=== PATIENT | male | born 1995 | race Caucasian/White ===

== ENCOUNTER 2018-02-25 11:03 | Emergency (ER) | payer SELFPAY ==
[~2018-02-25] VITALS: Ht 177.8 cm; Wt 84.1 kg
[2018-02-25 11:17] VITALS: BP 141/89
== END 2018-02-25 11:34 | disposition short-term general hospital (02) ==
LOC: EMS 11:04 → EDBD 11:04 → EMS 11:34
DX: S11.91XA Laceration without foreign body of unspecified part of neck, initial encounter (principal); W45.8XXA Other foreign body or object entering through skin, initial encounter; Y93.89 Activity, other specified; Y92.89 Other specified places as the place of occurrence of the external cause; Y99.8 Other external cause status
CPT/HCPCS: 99285

== ENCOUNTER 2021-03-10 16:54 | Inpatient (IN) | payer OTHER ==
[~2021-03-10] VITALS: Ht 177.8 cm; Wt 81.2 kg
[2021-03-10 19:37] LABS: BASOPHILS % (AUTO) 0.8 % (0.0-2.0); EOSINOPHILS % (AUTO) 0.9 % (1.0-6.0); HEMATOCRIT 42.8 % (41-53); HEMOGLOBIN 14.5 g/dL (13.5-17.5); LYMPHOCYTES # (AUTO) 2.7 K/uL (1.0-4.8); LYMPHOCYTES % (AUTO) 26.9 % (22.0-44.0); MEAN CORPUSCULAR HEMOGLOBIN 31.7 pg (26.0-34.0); MEAN CORPUSCULAR HGB CONC 33.8 G/dL (31.0-37.0); MEAN CORPUSCULAR VOLUME 94 fL (80-100); MONOCYTES # (AUTO) 0.5 K/uL (0.1-1.0); MONOCYTES % (AUTO) 5.1 % (2.0-9.0); NEUTROPHILS # (AUTO) 6.8 K/uL (1.8-7.7); NEUTROPHILS % (AUTO) 66.3 % (40.0-70.0); PLATELET COUNT (AUTO) 332 K/uL (150-450); RED BLOOD CELL COUNT(AUTO) 4.56 MIL/uL (4.50-5.90); RED CELL DISTRIBUTION WIDTH 13.4 % (11.5-14.5)
[2021-03-10 19:49] LABS: ANION GAP 12 mmol/L (8-16); CALCIUM, TOTAL 9.3 mg/dL (8.8-10.5); CARBON DIOXIDE 26 mmol/L (22-29); CHLORIDE 100 mmol/L (98-107); CREATININE 1.05 mg/dL (0.60-1.30); GLOMERULAR FILTR. RATE CALC > 60 mL/min (>60); GLUCOSE,RANDOM 120 mg/dL (70-110); POTASSIUM 3.8 mmol/L (3.5-5.1); SODIUM SERUM 138 mmol/L (136-145); UREA NITROGEN, BLOOD 11 mg/dL (7-18)
[2021-03-10 20:07] LABS: ALANINE AMINOTRANSFERASE 58 U/L (12-78); ALBUMIN 4.6 g/dL (3.4-5.0); ALKALINE PHOSPHATASE 127 U/L (46-116); ASPARTATE AMINOTRANSFERASE 42 U/L (15-37); BILIRUBIN,TOTAL 0.7 mg/dL (0.1-1.0); TOTAL PROTEIN, SERUM 8.3 g/dL (6.4-8.2)
[2021-03-10 20:50] LABS: COVID AG,FIA SOURCE NASOPHARYNGEAL
[2021-03-11 03:46] VITALS: BP 137/82
[2021-03-11] MEDS ORDERED: MAGNESIUM HYDROXIDE SUSPENSION 30 ML UDCUP PO PRN (07:00)
[2021-03-11] MEDS ORDERED: IBUPROFEN 600 MG TABLET PO PRN (07:00)
[2021-03-11] MEDS ORDERED: DOCUSATE SODIUM 100 MG CAPSULE PO PRN (07:00)
[2021-03-11] MEDS ORDERED: PETROLATUM,WHITE 28 GM JELLY TP PRN (07:00)
[2021-03-11] MEDS ORDERED: ALBUTEROL SULFATE HFA 90 MCG/PUFF 8 GM INHALER IH PRN (07:00)
[2021-03-11] MEDS ORDERED: BENZOCAINE/MENTHOL LOZENGE PO PRN (07:00)
[2021-03-11] MEDS ORDERED: CloNIDine HCL 0.1 MG TABLET PO PRN (07:00)
[2021-03-11] MEDS ORDERED: ACETAMINOPHEN 325 MG TABLET PO PRN (07:00)
[2021-03-11] MEDS ORDERED: LOPERAMIDE HCL 2 MG CAPSULE PO PRN (07:00)
[2021-03-11] MEDS ORDERED: BACITRACIN 28 GM OINTMENT TP PRN (07:00)
[2021-03-11] MEDS ORDERED: MAG HYDROX/AL HYDROX/SIMETH ES 30 ML SUSPENSION UDCUP PO PRN (07:00)
[2021-03-11] MEDS ORDERED: OMEPRAZOLE 20 MG CAPSULE PO PRN (07:00)
[2021-03-11] MEDS ORDERED: ONDANSETRON HCL 4 MG TABLET PO PRN (07:00)
[2021-03-11] MEDS: LORazepam 2 MG TABLET PO PRN (16:55)
[2021-03-11 19:23] VITALS: BP 138/87
[2021-03-11] MEDS: DIVALPROEX SODIUM 500 MG ER TABLET PO SCH (21:32)
[2021-03-12] MEDS: LORazepam 2 MG TABLET PO PRN ×3 (03:31→17:55)
[2021-03-12 08:33] VITALS: BP 126/76
[2021-03-12] MEDS: DIVALPROEX SODIUM 500 MG ER TABLET PO SCH ×2 (09:11→17:55)
[2021-03-12] MEDS: HALOPERIDOL 5 MG TABLET PO PRN ×2 (11:20→17:55)
[2021-03-12] MEDS ORDERED: DiphenhydrAMINE HCL 50 MG/ML VIAL ONE (12:11)
[2021-03-12] MEDS ORDERED: HALOPERIDOL LACTATE 5 MG/ML VIAL ONE (12:11)
[2021-03-12] MEDS ORDERED: LORazepam 2 MG/ML VIAL ONE (12:11)
[2021-03-12] MEDS ORDERED: LORazepam 2 MG/ML VIAL IM ONE (12:15)
[2021-03-12] MEDS ORDERED: HALOPERIDOL LACTATE 5 MG/ML VIAL IM ONE (12:15)
[2021-03-12] MEDS ORDERED: DiphenhydrAMINE HCL 50 MG/ML VIAL IM ONE (12:15)
[2021-03-12 12:51] LABS: CHOL/HDL RATIO 2.9 (4.2-7.3)
[2021-03-12] MEDS: QUEtiapine FUMARATE 300 MG TABLET PO SCH (22:23)
[2021-03-13 08:15] VITALS: BP 139/76
[2021-03-13] MEDS: OMEGA-3/DHA/EPA/FISH OIL 1,000 MG CAPSULE PO SCH (08:40)
[2021-03-13] MEDS: DIVALPROEX SODIUM 500 MG ER TABLET PO SCH ×2 (08:41→16:46)
[2021-03-13] MEDS: HALOPERIDOL 5 MG TABLET PO PRN ×3 (09:41→19:12)
[2021-03-13] MEDS: LORazepam 2 MG TABLET PO PRN ×3 (09:41→19:12)
[2021-03-13 15:02] VITALS: BP 119/73
[2021-03-13] MEDS: QUEtiapine FUMARATE 300 MG TABLET PO SCH (20:03)
[2021-03-13] MEDS: ZOLPIDEM TARTRATE 10 MG TABLET PO PRN (21:27)
[2021-03-13] MEDS ORDERED: HALOPERIDOL LACTATE 5 MG/ML VIAL ONE (21:35)
[2021-03-13] MEDS ORDERED: LORazepam 2 MG/ML VIAL ONE ×2 (21:35)
[2021-03-13] MEDS ORDERED: DiphenhydrAMINE HCL 50 MG/ML VIAL ONE (21:36)
[2021-03-13] MEDS ORDERED: LORazepam 2 MG/ML VIAL IM ONE (21:45)
[2021-03-13] MEDS ORDERED: DiphenhydrAMINE HCL 50 MG/ML VIAL IM ONE (21:45)
[2021-03-13] MEDS ORDERED: HALOPERIDOL LACTATE 5 MG/ML VIAL IM ONE (21:45)
[2021-03-13] MEDS: BACITRACIN 28 GM OINTMENT TP SCH (22:50)
[2021-03-14] MEDS: HALOPERIDOL 5 MG TABLET PO PRN ×2 (08:13→13:31)
[2021-03-14] MEDS: LORazepam 2 MG TABLET PO PRN ×2 (08:13→13:31)
[2021-03-14] MEDS: DIVALPROEX SODIUM 500 MG ER TABLET PO SCH ×2 (08:13→15:55)
[2021-03-14] MEDS: OMEGA-3/DHA/EPA/FISH OIL 1,000 MG CAPSULE PO SCH (08:13)
[2021-03-14] MEDS: BACITRACIN 28 GM OINTMENT TP SCH ×2 (08:15→16:05)
[2021-03-14] MEDS ORDERED: LORazepam 2 MG/ML VIAL ONE (15:50)
[2021-03-14] MEDS ORDERED: HALOPERIDOL LACTATE 5 MG/ML VIAL ONE (15:50)
[2021-03-14] MEDS ORDERED: DiphenhydrAMINE HCL 50 MG/ML VIAL ONE (15:51)
[2021-03-14 16:00] VITALS: BP 112/69
[2021-03-14] MEDS ORDERED: DiphenhydrAMINE HCL 50 MG/ML VIAL IM ONE (16:00)
[2021-03-14] MEDS ORDERED: LORazepam 2 MG/ML VIAL IM ONE (16:00)
[2021-03-14] MEDS ORDERED: HALOPERIDOL LACTATE 5 MG/ML VIAL IM ONE (16:00)
[2021-03-14] MEDS: QUEtiapine FUMARATE 300 MG TABLET PO SCH (20:01)
[2021-03-15] MEDS: HALOPERIDOL 5 MG TABLET PO PRN ×3 (07:49→20:24)
[2021-03-15] MEDS: LORazepam 2 MG TABLET PO PRN ×3 (07:49→17:06)
[2021-03-15] MEDS: DIVALPROEX SODIUM 500 MG ER TABLET PO SCH ×2 (07:49→16:30)
[2021-03-15] MEDS: OMEGA-3/DHA/EPA/FISH OIL 1,000 MG CAPSULE PO SCH (07:49)
[2021-03-15 08:20] VITALS: BP 124/87
[2021-03-15] MEDS: BACITRACIN 28 GM OINTMENT TP SCH ×2 (09:08→16:30)
[2021-03-15] MEDS ORDERED: HALOPERIDOL LACTATE 5 MG/ML VIAL IM ONE (12:15)
[2021-03-15] MEDS ORDERED: DiphenhydrAMINE HCL 50 MG/ML VIAL IM ONE (12:15)
[2021-03-15] MEDS ORDERED: LORazepam 2 MG/ML VIAL IM ONE (12:15)
[2021-03-15] MEDS: ZOLPIDEM TARTRATE 10 MG TABLET PO PRN (20:24)
[2021-03-15] MEDS: QUEtiapine FUMARATE 300 MG TABLET PO SCH (20:46)
[2021-03-16 08:56] VITALS: BP 110/66
[2021-03-16] MEDS: BACITRACIN 28 GM OINTMENT TP SCH ×2 (09:01→16:06)
[2021-03-16] MEDS: DIVALPROEX SODIUM 500 MG ER TABLET PO SCH ×2 (09:01→16:05)
[2021-03-16] MEDS: LORazepam 2 MG TABLET PO PRN ×2 (09:01→13:01)
[2021-03-16] MEDS: HALOPERIDOL 5 MG TABLET PO PRN ×3 (09:01→17:30)
[2021-03-16] MEDS: OMEGA-3/DHA/EPA/FISH OIL 1,000 MG CAPSULE PO SCH (09:01)
[2021-03-16 10:44] LABS: COVID AG,FIA SOURCE NASOPHARYNGEAL
[2021-03-16 17:52] VITALS: BP 108/62
[2021-03-16] MEDS ORDERED: LORazepam 2 MG/ML VIAL IM ONE (18:15)
[2021-03-16] MEDS ORDERED: HALOPERIDOL LACTATE 5 MG/ML VIAL IM ONE (18:15)
[2021-03-16] MEDS ORDERED: DiphenhydrAMINE HCL 50 MG/ML VIAL ONE (18:17)
[2021-03-16] MEDS: ZOLPIDEM TARTRATE 10 MG TABLET PO PRN (20:23)
[2021-03-16] MEDS: QUEtiapine FUMARATE 300 MG TABLET PO SCH (20:23)
[2021-03-17] MEDS: HALOPERIDOL 5 MG TABLET PO PRN ×2 (08:07→16:10)
[2021-03-17] MEDS: BACITRACIN 28 GM OINTMENT TP SCH ×2 (08:07→16:40)
[2021-03-17] MEDS: DIVALPROEX SODIUM 500 MG ER TABLET PO SCH ×2 (08:07→16:10)
[2021-03-17] MEDS: LORazepam 2 MG TABLET PO PRN ×3 (08:07→20:55)
[2021-03-17] MEDS: OMEGA-3/DHA/EPA/FISH OIL 1,000 MG CAPSULE PO SCH (08:07)
[2021-03-17 08:18] VITALS: BP 139/80
[2021-03-17 16:03] VITALS: BP 136/85
[2021-03-17] MEDS: HALOPERIDOL 5 MG TABLET PO SCH (20:22)
[2021-03-17] MEDS: QUEtiapine FUMARATE 300 MG TABLET PO SCH (20:22)
[2021-03-17] MEDS: ZOLPIDEM TARTRATE 10 MG TABLET PO PRN (20:55)
[2021-03-18] MEDS: HALOPERIDOL 5 MG TABLET PO SCH ×2 (08:06→20:11)
[2021-03-18] MEDS: DIVALPROEX SODIUM 500 MG ER TABLET PO SCH ×2 (08:07→16:00)
[2021-03-18] MEDS: HALOPERIDOL 5 MG TABLET PO PRN ×3 (08:15→17:08)
[2021-03-18] MEDS: BACITRACIN 28 GM OINTMENT TP SCH ×2 (08:15→16:01)
[2021-03-18] MEDS: LORazepam 2 MG TABLET PO PRN ×3 (08:15→17:08)
[2021-03-18] MEDS: OMEGA-3/DHA/EPA/FISH OIL 1,000 MG CAPSULE PO SCH (08:15)
[2021-03-18 09:39] VITALS: BP 128/88
[2021-03-18] MEDS: QUEtiapine FUMARATE 300 MG TABLET PO SCH (20:11)
[2021-03-18] MEDS: ZOLPIDEM TARTRATE 10 MG TABLET PO PRN (20:11)
[2021-03-19] MEDS: BACITRACIN 28 GM OINTMENT TP SCH (08:37)
[2021-03-19] MEDS: OMEGA-3/DHA/EPA/FISH OIL 1,000 MG CAPSULE PO SCH (08:38)
[2021-03-19] MEDS: DIVALPROEX SODIUM 500 MG ER TABLET PO SCH (08:38)
[2021-03-19] MEDS: HALOPERIDOL 5 MG TABLET PO PRN (08:39)
[2021-03-19] MEDS: LORazepam 2 MG TABLET PO PRN (08:39)
[2021-03-19 08:40] VITALS: BP 117/64
[2021-03-19] MEDS ORDERED: MULTIVITAMINS WITH MINERALS, THERAPEUTIC TABLET PO SCH (09:00)
[2021-03-19] MEDS ORDERED: THIAMINE 100 MG TABLET PO SCH (09:00)
[2021-03-19] MEDS ORDERED: FOLIC ACID 1 MG TABLET PO SCH (09:00)
[2021-03-19] MEDS ORDERED: MULT-1239 PO (11:01)
[2021-03-19] MEDS ORDERED: BACI28OI28 TP (11:01)
[2021-03-19] MEDS ORDERED: OMEG100033 PO (11:01)
[2021-03-19] MEDS ORDERED: QUET300T2 PO (11:01)
[2021-03-19] MEDS ORDERED: HALO5TAB2 PO (11:01)
[2021-03-19] MEDS ORDERED: FOLI-130 PO (11:01)
[2021-03-19] MEDS ORDERED: THIA100T80 PO (11:01)
[2021-03-19] MEDS ORDERED: DIVA-80 PO (11:01)
== END 2021-03-19 13:50 | disposition home or self-care (01) | DRG 885 ==
LOC: EMS 17:01 → 3EI 03-11 03:00 → UNDOADMIN 03-11 03:00 → 3EX 03-11 03:00 → 3EI 03-11 03:43 → 3EC 03-12 12:56
PROVIDERS: ADMIT Psychiatry & Neurology Psychiatry; ATTEND Psychiatry & Neurology Psychiatry
DX: F25.9 Schizoaffective disorder, unspecified (principal); R45.851 Suicidal ideations; I10 Essential (primary) hypertension; K59.00 Constipation, unspecified; F41.9 Anxiety disorder, unspecified; G47.00 Insomnia, unspecified; Z20.822 Contact with and (suspected) exposure to COVID-19; F10.10 Alcohol abuse, uncomplicated
CPT/HCPCS: 80053; 80061; 80164; 83036; 85025; 99285; G0480; J1200; J1630; J2060

== ENCOUNTER 2021-03-20 16:15 | Emergency (ER) | payer OTHER ==
[~2021-03-20] VITALS: Ht 177.8 cm; Wt 81.2 kg
[~2021-03-20 16:15] MED LIST: BACI28OI28 TP; DIVA-80 PO; FOLI-130 PO; HALO5TAB2 PO; MULT-1239 PO; OMEG100033 PO; QUET300T2 PO; THIA100T80 PO
[2021-03-20 16:45] LABS: BASOPHILS % (AUTO) 1.3 % (0.0-2.0); EOSINOPHILS % (AUTO) 0.6 % (1.0-6.0); HEMATOCRIT 40.7 % (41-53); HEMOGLOBIN 13.9 g/dL (13.5-17.5); LYMPHOCYTES # (AUTO) 2.6 K/uL (1.0-4.8); LYMPHOCYTES % (AUTO) 40.9 % (22.0-44.0); MEAN CORPUSCULAR HEMOGLOBIN 31.9 pg (26.0-34.0); MEAN CORPUSCULAR HGB CONC 34.1 G/dL (31.0-37.0); MEAN CORPUSCULAR VOLUME 94 fL (80-100); MONOCYTES # (AUTO) 0.5 K/uL (0.1-1.0); MONOCYTES % (AUTO) 8.2 % (2.0-9.0); NEUTROPHILS # (AUTO) 3.1 K/uL (1.8-7.7); PLATELET COUNT (AUTO) 351 K/uL (150-450); RED BLOOD CELL COUNT(AUTO) 4.35 MIL/uL (4.50-5.90); RED CELL DISTRIBUTION WIDTH 13.5 % (11.5-14.5)
[2021-03-20 16:54] LABS: ANION GAP 14 mmol/L (8-16); CALCIUM, TOTAL 8.2 mg/dL (8.8-10.5); CARBON DIOXIDE 24 mmol/L (22-29); CHLORIDE 106 mmol/L (98-107); CREATININE 0.77 mg/dL (0.60-1.30); GLOMERULAR FILTR. RATE CALC > 60 mL/min (>60); GLUCOSE,RANDOM 116 mg/dL (70-110); POTASSIUM 4.2 mmol/L (3.5-5.1); SODIUM SERUM 144 mmol/L (136-145); UREA NITROGEN, BLOOD 13 mg/dL (7-18)
[2021-03-20 16:59] LABS: ALANINE AMINOTRANSFERASE 97 U/L (12-78); ALKALINE PHOSPHATASE 101 U/L (46-116); ASPARTATE AMINOTRANSFERASE 63 U/L (15-37); BILIRUBIN,TOTAL 0.2 mg/dL (0.1-1.0); TOTAL PROTEIN, SERUM 7.7 g/dL (6.4-8.2)
[2021-03-20 17:00] LABS: ACETAMINOPHEN < 2 mcg/mL (10-30); SALICYLATE 1.5 mg/dL (2.8-20.0)
[2021-03-20 17:26] LABS: APPEARANCE,URINE CLEAR (CLEAR); BILIRUBIN,URINE NEGATIVE (NEGATIVE); GLUCOSE, URINE (UA) NEGATIVE (NEGATIVE); KETONES,URINE NEGATIVE (NEGATIVE); LEUKOCYTE ESTERASE ,URINE NEGATIVE (NEGATIVE); NITRATE,URINE NEGATIVE (NEGATIVE); OCCULT BLOOD,URINE NEGATIVE (NEGATIVE); PH,URINE 5.5 (5.0-8.0); PROTEIN,URINE NEGATIVE (NEGATIVE); UROBILINOGEN,URINE 0.2 mg/dL (<=1.0)
[2021-03-20 17:34] LABS: AMPHET/METH SCREEN,URINE NEGATIVE (NEGATIVE); BARBITURATE SCREEN, URINE NEGATIVE (NEGATIVE); BENZODIAZEPINES SCREEN,URINE NEGATIVE (NEGATIVE); CANNABINOID SCREEN,URINE POSITIVE (NEGATIVE); COCAINE SCREEN,URINE NEGATIVE (NEGATIVE); METHADONE SCREEN, URINE NEGATIVE (NEGATIVE); OPIATE SCREEN,URINE NEGATIVE (NEGATIVE)
[2021-03-20 17:36] LABS: PHENCYCLIDINE SCREEN,URINE NEGATIVE (NEGATIVE)
[2021-03-20 17:38] LABS: BACTERIA,URINE None Seen /HPF (None Seen); RBC,URINE None Seen /HPF (0-2); SQUAMOUS EPITHELIAL CELL,UR Rare /LPF (None Seen); WBC,URINE None Seen /HPF (0-5)
[2021-03-20] MEDS ORDERED: ONDANSETRON HCL 4 MG TABLET PO ONE (18:00)
[2021-03-20] MEDS ORDERED: LORazepam 2 MG TABLET PO ONE (20:15)
[2021-03-20 20:50] LABS: COVID AG,FIA SOURCE NASOPHARYNGEAL
[2021-03-20 22:22] VITALS: BP 141/79
== END 2021-03-20 22:21 | disposition home or self-care (01) ==
LOC: EMS 16:17
DX: F10.129 Alcohol abuse with intoxication, unspecified (principal); F19.10 Other psychoactive substance abuse, uncomplicated; Z20.822 Contact with and (suspected) exposure to COVID-19; Y90.8 Blood alcohol level of 240 mg/100 ml or more
CPT/HCPCS: 36415; 80053; 80307; 81001; 85025; 87426; 99283; G0480; Q0162; G0481